=== PATIENT | female | born 1950 | race Caucasian/White ===

== ENCOUNTER 2017-06-26 13:35 | Emergency (ER) | payer MEDICARE, OTHER ==
[2017-06-26 15:22] VITALS: BP 110/54
[2017-06-26] MEDS ORDERED: Lidocaine 1%* 5 ML VIAL ONE (16:49)
--- NOTE | 2017-06-26 17:12 | ED ---
Skin Complaint - HPI Summary HPI Summary: 66 female presents with complaints of right great toe tenderness and redness that began a few days ago and worsened today. She states she had blister/wound to right great toe nail from working a lot in uncomfortable shoes. Patient states she developed a green color filled blister at bottom of right great toenail. Has been applying herbalist topical medications to help draw out infection with little relief. Patient denies fever/chills. Admits to some pain. No other complaints otherwise. No PMHx. Denies discharge. - History of Current Complaint Chief Complaint: EDExtremityLower Time Seen by Provider: 06/26/17 15:08 Stated Complaint: BIG TOE RT FOOT POSS INFECTION Hx Obtained From: Patient Onset/Duration: Started Days Ago, Still Present, Worse Since Skin Exposure Onset/Duration: Days Ago Timing: Constant Onset Severity: Mild Current Severity: Moderate Pain Intensity: 5 Pain Scale Used: 0-10 Numeric Skin Location: Foot - right great toe Character: Swelling, Redness, Painful Aggravating Symptom(s): Touch Alleviating Symptom(s): Nothing, Treatment [employer]: - herbal medication topical Associated Signs & Symptoms: Negative - Allergy/Home Medications Allergies/Adverse Reactions: Allergies Allergy/AdvReac Type Severity Reaction Status Date / Time Corticosteroids Allergy Unknown Verified 06/26/17 13:53 Reaction Details PMH/Surg Hx/FS Hx/Imm Hx Endocrine/Hematology History: Denies: Hx Diabetes Cardiovascular History: Denies: Hx Hypertension Respiratory History: Denies: Hx Asthma - Surgical History Surgery Procedure, Year, and Place: n/a - Immunization History Immunizations Up to Date: Yes Infectious Disease History: No Infectious Disease History: Denies: Traveled Outside the [place] in Last 30 Days - Family History Known Family History: Positive: None - Social History Alcohol Use: None Substance Use Type: Reports: None Smoking Status (MU): Never Smoked Tobacco Review of Systems Constitutional: Negative Cardiovascular: Negative Respiratory: Negative Gastrointestinal: Negative Positive: Myalgia - right great toe Positive: Other - right great toe infection/blister Neurological: Negative All Other Systems Reviewed And Are Negative: Yes Physical Exam Triage Information Reviewed: Yes Vital Signs On Initial Exam: Initial Vitals Temp Pulse Resp BP Pulse Ox 98.4 F 73 16 111/56 98 06/26/17 13:53 06/26/17 13:53 06/26/17 13:53 06/26/17 13:53 06/26/17 13:53 Vital Signs Reviewed: Yes Appearance: Positive: Well-Appearing, No Pain Distress, Well-Nourished Skin: Positive: Warm, Skin Color Reflects Adequate Perfusion, Dry, Erythema @ - right great toe, anteriorly top by toenail, appears to be infected with green discharge, fluid filled blister/ paronychia. much relief after drainage. some mild cellulitis surrounding area on anterior great toe, no other concerns, rest of skin exam normal.. Negative: Cold, Numb, Cyanosis @, Pale Head/Face: Positive: Normal Head/Face Inspection Eyes: Positive: Conjunctiva Clear ENT: Positive: Hearing grossly normal Neck: Positive: Supple, Nontender, No Lymphadenopathy Respiratory/Lung Sounds: Positive: Clear to Auscultation, Breath Sounds Present. Negative: Rales, Rhonchi, Wheezes Cardiovascular: Positive: Normal, RRR, Pulses are Symmetrical in both Upper and Lower Extremities - 2+ pedal b/l. Negative: Murmur, Rub Musculoskeletal: Positive: Normal, Strength/ROM Intact Neurological: Positive: Normal, Sensory/Motor Intact, Alert, Oriented to Person Place, Time, NV Bundle Intact Distally, Normal Gait Psychiatric: Positive: Affect/Mood Appropriate - Laney Coma Scale Coma Scale Total: 15 Procedures - Incision and Drainage Site: right great toe, paronychia with small abscess Anesthesia: Local, Lidocaine Instrument(s): Needle, Other - hemostat Diagnostics - Vital Signs Vital Signs Temp Pulse Resp BP Pulse Ox 06/26/17 15:18 98.4 F 73 16 110/54 99 06/26/17 13:53 98.4 F 73 16 111/56 98 - Laboratory Lab Statement: Any lab studies that have been ordered have been reviewed, and results considered in the medical decision making process. Course/Dx - Course Course Of Treatment: appears to be suffering from paronychia. no concern for other etiology or sign of gangrene. wound discharge was cultured during I&D. tolerated procedure well, releived all discharge. triple antibiotic ointment on wound, irrigated and dressed. no complications. antibiotic orally at home, continue dressing, warm soaks with epsom salt, open shoes, triple anitbiotic ointment and keep clean and dry. Covered for MRSA due to smell and appearance. Aware of worsening signs and symptoms. Follow up pcp. - Differential Diagnoses - Skin Complaint Differential Diagnoses: Abscess, Cellulitis, Contact Dermatitis, Tinea, Other - paronychia, infection - Diagnoses Provider Diagnoses: Paronychia of great toe, right, Cellulitis of great toe Discharge - Discharge Plan Condition: Stable Disposition: HOME Prescriptions: Sulfamethox/Trimethoprim DS* [Bactrim DS 800/160 TAB*] 1 tab PO BID #14 tab Patient Education Materials: Paronychia (ED) Referrals: Non Staff,Doctor [Primary Care Provider] - Additional Instructions: Warm epsom salt soaks multiple times daily. Apply triple antibiotic ointment to area. Keep clean and dry, let air get to it. Take prescribed oral antibiotic as directed for 7 days. You will hear about wound culture results if positive. Follow up with PCP.
--- NOTE | 2017-06-30 08:48 | ED ---
Progress - Progress Note Progress Note: Pt's wound cx reveals staph legdenensis - bactrim is not effective against this. Pt reports infection is improving although she admits she's not soaking it much - once a day when she can. She is covering with bandaid and triple anbx ointment. Denies worsening redness, swelling, streaking, fever, chills. Will stop bactrim and if infection gets worse again, will switch to clindamycin. Lengthy conversation about why it's important to soak wound in this specific case - she voices understanding. Reviewed danger s/sx of when to go to seek medical attention. Pt voices understanding. Course/Dx - Course Course Of Treatment: appears to be suffering from paronychia. no concern for other etiology or sign of gangrene. wound discharge was cultured during I&D. tolerated procedure well, releived all discharge. triple antibiotic ointment on wound, irrigated and dressed. no complications. antibiotic orally at home, continue dressing, warm soaks with epsom salt, open shoes, triple anitbiotic ointment and keep clean and dry. Covered for MRSA due to smell and appearance. Aware of worsening signs and symptoms. Follow up pcp. - Diagnoses Provider Diagnoses: Paronychia of great toe, right, Cellulitis of great toe
== END 2017-06-26 17:16 | disposition home or self-care (01) ==
LOC: ED 13:35
DX: L03.031 Cellulitis of right toe (principal)
CPT/HCPCS: 87070; 87077; 87186; 87205; 87640; 87641; 99282